=== PATIENT | male | born 1990 | race Hispanic/Latino ===

== ENCOUNTER 2018-02-05 21:05 | Emergency (ER) | payer OTHER ==
[2018-02-05] MEDS ORDERED: LIDOCAINE HCL-MPF 1% 2ML VIAL ONE (22:16)
[2018-02-05] MEDS ORDERED: CEFTRIAXONE SODIUM 1 GM ONE (22:17)
[2018-02-05] MEDS ORDERED: TETANUS/DIPHTHERIA TOXOID [ADULT] 0.5 ML VIAL IM ONE (22:17)
[2018-02-05] MEDS ORDERED: ACETAMINOPHEN EXTRA STRENGTH 500 MG TABLET ONE (22:17)
== END 2018-02-05 23:17 | disposition home or self-care (01) ==
LOC: EDH 21:05
DX: S31.811A Laceration without foreign body of right buttock, initial encounter (principal); W26.0XXA Contact with knife, initial encounter; Y93.89 Activity, other specified; Y92.89 Other specified places as the place of occurrence of the external cause; Y99.8 Other external cause status
CPT/HCPCS: 12002; 90471; 90714; 96372; 99284; J0696; J3490